=== PATIENT | female | born 1930 | race Caucasian/White ===

== ENCOUNTER → 2017-10-02 | Outpatient (CLI) | payer MEDICARE ==
[2015-05-23 19:43] VITALS: BP 127/70
[~2017-10-02] MED LIST: ALLO300T PO; APIX2.5T PO; CARV12.52 PO; CHOL10003 PO; CITA10TA8 PO; CITA20TA9 PO; FERR-36 PO; GLYB1TAB2 PO; HYDR12.58 PO; LOSA1TAB22 PO; LOSA50TA2 PO; MIRT15TA3 PO; MIRT7.5T8 PO; NYST60PO TP; OMEG-33 PO; PANT40TA3 PO; SIMV20TA PO
--- NOTE | 2017-10-02 13:04 | RAD ---
EXAM: Head CT without contrast. HISTORY: Unsteady gait. TECHNIQUE: Computed tomographic images of the head were obtained without contrast. *One or more of the following individualized dose reduction techniques were utilized for this examination: 1. Automated exposure control. 2. Adjustment of the mA and/or kV according to patient size. 3. Use of iterative reconstruction technique. COMPARISON: 05/11/2015. FINDINGS: There is no acute or subacute extra-axial or intraparenchymal hemorrhage. There is no mass effect or midline shift. There is no hydrocephalus. There are areas of decreased attenuation within the cerebral white matter, nonspecific and likely related to chronic small vessel disease. There is mild cerebral volume loss. There is orbital band keratopathy. The paranasal sinuses and mastoid air cells are unremarkable. There is slight hyperostosis frontalis interna, an incidental finding. IMPRESSION: 1. No acute intracranial finding. 2. Scattered areas of hypodensity within the cerebral white matter, a nonspecific finding likely due to chronic small vessel disease. 3. Note is made that MRI is more sensitive for acute infarction. Electronically signed by: Marcella Wong MD (10/02/2017 1:00 PM) [facility]
== END | disposition home or self-care (01) ==
LOC: CT 12:38
PROVIDERS: ATTEND Specialist
DX: G45.9 Transient cerebral ischemic attack, unspecified (principal); M85.2 Hyperostosis of skull; H18.429 Band keratopathy, unspecified eye
CPT/HCPCS: 70450

== ENCOUNTER → 2017-10-05 | Outpatient (CLI) | payer MEDICARE ==
[2015-05-23 19:43] VITALS: BP 127/70
--- NOTE | 2017-10-05 16:12 | RAD ---
EXAM: Carotid Doppler sonogram. HISTORY: Transient ischemic attack. TECHNIQUE: Regalado scale and color Doppler sonographic evaluation of the neck with spectral waveform analysis was performed and static images are submitted for review. FINDINGS: There is intimal thickening involving the common carotid arteries and mild atherosclerotic plaque within the carotid bulbs and origins of the internal and external carotid arteries. The peak systolic velocity within the right common carotid artery is 62 cm/sec. The peak systolic velocity within the right internal carotid artery is 65 cm/sec and the end diastolic velocity within the right internal carotid artery is 16 cm/sec. The right ICA/CCA ratio is 0.9. The peak systolic velocity within the left common carotid artery is 86 cm/sec. The peak systolic velocity within the left internal carotid artery is 142 cm/sec and the end diastolic velocity within the left internal carotid artery is 21 cm/sec. The left ICA/CCA ratio is 1.7. There is normal antegrade flow within both vertebral arteries. IMPRESSION: 1. Mildly elevated peak systolic velocity within the left ICA. Despite normal ICA to CCA ratio, this suggests 50-69% stenosis. 2. No Doppler evidence of hemodynamically significant stenosis within the right internal carotid artery or vertebral arteries. PQRS Compliance Statement - Stenosis calculations for CT, MR and conventional angiography are based upon measurement of the distal ICA diameter in accordance with the NASCET methodology. Stenosis calculations for carotid ultrasound studies are derived from validated velocity criteria which are known to correlate with the NASCET methodology. Electronically signed by: Marcella Wong MD (10/05/2017 4:08 PM) [facility]
== END | disposition home or self-care (01) ==
LOC: US 13:49
PROVIDERS: ATTEND Specialist
DX: G45.9 Transient cerebral ischemic attack, unspecified (principal)
CPT/HCPCS: 93880

== ENCOUNTER 2017-10-21 14:03 | Inpatient (IN) | payer MEDICARE ==
[~2017-10-21] VITALS: Ht 157.5 cm; Wt 75.0 kg
--- NOTE | 2017-10-21 14:38 | PHYS DOC ---
Past History Past Medical History: Hypertension, Other Past Surgical History: Other Alcohol Use: None Adult General Chief Complaint Chief Complaint: WEAKNESS/GENERALIZED HPI HPI 87-year-old female patient brought in by EMS because of altered level of consciousness. Patient's daughter states she was sitting on her chair in October alliance party and was not able to hold her plate and then her head fell on her chest and she became unresponsive and did not respond to question. Patient had mild cyanosis at that time and after about 15 minutes at arrival of EMS had O2 sat of 85% and her condition improved with his starting oxygen and patient became gradually rate and oriented and was able to move all of her extremities and denies any pain. She is alert and oriented at arrival to ER and does not remember any event. Patient daughter states she is able to walk without or sometimes with collections assistant and had mild episodes of dementia recently. Review of Systems Review of Systems Constitutional: Denies fever or chills [] Eyes: Denies change in visual acuity, redness, or eye pain [] HENT: Denies nasal congestion or sore throat [] Respiratory: Denies cough or shortness of breath [] Cardiovascular: No additional information not addressed in HPI [] GI: Denies abdominal pain, nausea, vomiting, bloody stools or diarrhea [] : Denies dysuria or hematuria [] Musculoskeletal: Denies back pain or joint pain [] Integument: Denies rash or skin lesions [] Neurologic: Denies headache, focal weakness or sensory changes [] Endocrine: Denies polyuria or polydipsia [] All other systems were reviewed and found to be within normal limits, except as documented in this note. Allergies Allergies Allergies Coded Allergies Type Severity Reaction Last Updated Verified No Known Drug Allergies 05/11/15 No Physical Exam Physical Exam Constitutional: Well nourished, mild distress, non-toxic appearance, slow to answering the question. [] HENT: Normocephalic, atraumatic, bilateral external ears normal, oropharynx moist, no oral exudates, nose normal. [] Eyes: PERRLA, EOMI, conjunctiva normal, no discharge. [] Neck: Normal range of motion, no tenderness, supple, no stridor. [] Cardiovascular: Irregularly irregular, no murmur [] Lungs & Thorax: Bilateral breath sounds clear to auscultation [] Abdomen: Bowel sounds normal, soft, no tenderness, no masses, no pulsatile masses. [] Skin: Warm, dry, no erythema, no rash. [] Back: No tenderness, no CVA tenderness. [] Extremities: No tenderness, no cyanosis, no clubbing, ROM intact, no edema. [] Neurologic: Alert and oriented X 2, normal motor function, normal sensory function, no focal deficits noted. [] Psychologic: Affect normal, mood normal. [] EKG EKG EKG interpreted by me. EKG at 1409 showed atrial fibrillation at rate of 76, prolonged WV interval at 224 nonspecific intraventricular block, poor R-wave progress and anteroseptal leads, no acute ST and T-wave abnormalities.[] Radiology/Procedures Radiology/Procedures [][address] [address] IMAGING REPORT Signed PATIENT: JEFFREY PARIS ACCOUNT: [id number] : 1930 LOCATION: ER AGE: 87 SEX: F EXAM STATUS: REG ER ORD. PHYSICIAN: CALVIN MILLER MD REASON: altered level of consciousness PROCEDURE: PORTABLE CHEST 1V EXAM: Chest, single view. HISTORY: Weakness. COMPARISON: 05/12/2015 FINDINGS: A frontal view of the chest is obtained. There is no infiltrate, pleural effusion or pneumothorax. There is lingular and bilateral infrahilar atelectasis or scarring. The heart is normal in size. IMPRESSION: Suspected lingular and bilateral lower lobe atelectasis or scarring. Electronically signed by: Marcella Calderon MD (10/21/2017 3:06 PM) [facility] DICTATED AND SIGNED BY: MARCELLA CALDERON MD DATE: 10/21/17 1506 CC: CALVIN MILLER MD; BENNIE WETZEL MD ~ [address] [address] IMAGING REPORT Signed PATIENT: JEFFREY PARIS ACCOUNT: [id number] : 1930 LOCATION: ER AGE: 87 SEX: F EXAM STATUS: REG ER ORD. PHYSICIAN: CALVIN MILLER MD REASON: altered level of consciousness PROCEDURE: CT HEAD WO CONTRAST EXAM: Head CT without contrast. HISTORY: Weakness. Mental status changes. TECHNIQUE: Computed tomographic images of the head were obtained without contrast. *One or more of the following individualized dose reduction techniques were utilized for this examination: 1. Automated exposure control. 2. Adjustment of the mA and/or kV according to patient size. 3. Use of iterative reconstruction technique. COMPARISON: 10/02/2017. FINDINGS: There is no acute or subacute extra-axial or intraparenchymal hemorrhage. There is no mass effect or midline shift. There is no hydrocephalus. There are areas of decreased attenuation within the cerebral white matter, nonspecific and likely related to chronic small vessel disease. There is cerebral volume loss. There is a suspected tiny chronic lacunar infarct within the left basal ganglia. There is evidence of prior lens surgery. There is uncovertebral band keratopathy. The mastoid air cells and paranasal sinuses are unremarkable. No suspicious calvarial lesion is seen. There is incidental hyperostosis frontalis interna. IMPRESSION: 1. No acute intracranial finding. Note is made that MRI is more sensitive for acute infarction. 2. Decreased attenuation scattered throughout the cerebral white matter, a nonspecific finding likely due to chronic small vessel disease. 2. Cerebral volume loss. 4. Suspected tiny chronic acute infarct within the left basal ganglia. Electronically signed by: Marcella aClderon MD (10/21/2017 3:06 PM) [facility] DICTATED AND SIGNED BY: MARCELLA CALDERON MD DATE: 10/21/17 1504 CC: CALVIN MILLER MD; BNENIE WETZEL MD ~ Course & Med Decision Making Course & Med Decision Making Pertinent Labs and Imaging studies reviewed. (See chart for details) Evaluation of patient in ER showed 87-year-old female patient brought in by EMS because of altered level of consciousness that improved after starting oxygen by EMS. Patient was as low in ER. EMS reported that she had blood sugar of stools to but her blood sugar reported 48 by labs and patient treated with a 12.5 g of glucose with increase of blood sugar to 67 and another 12.5 g of glucose was given. Patient condition improved. Patient had UTI with elevation of lactic acid to 2.4 and treated with IV fluid and Rocephin and admitted to Dr. Spencer at 1511 after informing him about the test results. Dragon Disclaimer Dragon Disclaimer This electronic medical record was generated, in whole or in part, using a voice recognition dictation system. Departure Departure: Impression: Primary Impression: Hypoglycemia Additional Impressions: UTI (urinary tract infection) Weakness Sepsis Disposition: ADMITTED INPATIENT (At 1511) Admitting Physician: Adnoay Spencer Condition: IMPROVED Referrals: BENNIE WETZEL MD (PCP) Critical Care Time Critical care time was [70] minutes exclusive of procedures. Problem Qualifiers CALVIN MILLER MD Oct 21, 2017 14:38
[2017-10-21 14:42] LABS: BASO % 0 % (0-3); EOS # 0.2 x10^3/uL (0.0-0.7); EOS % 2 % (0-3); HEMATOCRIT 42.1 % (36.0-47.0); HEMOGLOBIN 13.9 g/dL (12.0-15.5); LYMPH # 1.7 x10^3/uL (1.0-4.8); LYMPH % 18 % (24-48); MEAN CORPUSCULAR HEMOGLOBIN 31 pg (25-35); MEAN CORPUSCULAR HGB CONC 33 g/dL (31-37); MEAN CORPUSCULAR VOLUME 94 fL (79-100); MONO # 0.6 x10^3/uL (0.0-1.1); MONO % 6 % (0-9); NEUT # 7.1 x10^3uL (1.8-7.7); NEUT % 74 % (31-73); PLATELET COUNT 200 x10^3/uL (140-400); RED BLOOD COUNT 4.49 x10^6/uL (3.50-5.40); RED CELL DISTRIBUTION WIDTH 16.3 % (11.5-14.5); WHITE BLOOD COUNT 9.6 x10^3/uL (4.0-11.0)
[2017-10-21 14:56] LABS: BACTERIA,URINE MANY /HPF (0-FEW); BILIRUBIN,URINE NEG (NEG); CLARITY,URINE HAZY; COLOR,URINE YELLOW; GLUCOSE,URINE NEG (NEG); NITRITE,URINE NEG (NEG); RBC,URINE OCC /HPF (0-2); SQUAMOUS EPITHELIAL CELL,UR MOD /LPF; UROBILINOGEN,URINE 0.2 mg/dL (0.2 mg/dL)
[2017-10-21 14:59] LABS: ALBUMIN 3.5 g/dL (3.4-5.0); CALCIUM 9.4 mg/dL (8.5-10.1); CREATININE 1.2 mg/dL (0.6-1.0); GFR 42.4; MAGNESIUM 1.7 mg/dL (1.8-2.4); POTASSIUM 3.4 mmol/L (3.5-5.1); TOTAL BILIRUBIN 0.3 mg/dL (0.2-1.0); TOTAL PROTEIN 6.9 g/dL (6.4-8.2)
[2017-10-21] MEDS ORDERED: IV NORMAL SALINE 1,000ML 1,000 ML IV ONE (15:00)
--- NOTE | 2017-10-21 15:09 | RAD ---
EXAM: Head CT without contrast. HISTORY: Weakness. Mental status changes. TECHNIQUE: Computed tomographic images of the head were obtained without contrast. *One or more of the following individualized dose reduction techniques were utilized for this examination: 1. Automated exposure control. 2. Adjustment of the mA and/or kV according to patient size. 3. Use of iterative reconstruction technique. COMPARISON: 10/02/2017. FINDINGS: There is no acute or subacute extra-axial or intraparenchymal hemorrhage. There is no mass effect or midline shift. There is no hydrocephalus. There are areas of decreased attenuation within the cerebral white matter, nonspecific and likely related to chronic small vessel disease. There is cerebral volume loss. There is a suspected tiny chronic lacunar infarct within the left basal ganglia. There is evidence of prior lens surgery. There is uncovertebral band keratopathy. The mastoid air cells and paranasal sinuses are unremarkable. No suspicious calvarial lesion is seen. There is incidental hyperostosis frontalis interna. IMPRESSION: 1. No acute intracranial finding. Note is made that MRI is more sensitive for acute infarction. 2. Decreased attenuation scattered throughout the cerebral white matter, a nonspecific finding likely due to chronic small vessel disease. 2. Cerebral volume loss. 4. Suspected tiny chronic acute infarct within the left basal ganglia. Electronically signed by: Marcella Wong MD (10/21/2017 3:06 PM) [facility]
--- NOTE | 2017-10-21 15:09 | RAD ---
EXAM: Chest, single view. HISTORY: Weakness. COMPARISON: 05/12/2015 FINDINGS: A frontal view of the chest is obtained. There is no infiltrate, pleural effusion or pneumothorax. There is lingular and bilateral infrahilar atelectasis or scarring. The heart is normal in size. IMPRESSION: Suspected lingular and bilateral lower lobe atelectasis or scarring. Electronically signed by: Marcella Wong MD (10/21/2017 3:06 PM) [facility]
[2017-10-21] MEDS ORDERED: IV NORMAL SALINE 1,000ML 1,000 ML IV SCH (15:12)
[2017-10-21] MEDS ORDERED: cefTRIAXone IV Push 1 GM VIAL. IVP SCH ×2 (15:15→16:00)
[2017-10-21] MEDS ORDERED: DEXTROSE 50% 25 GM / 50ML DISP.SYRIN. IV ONE ×2 (15:15→15:45)
--- NOTE | 2017-10-21 15:20 | EKG ---
[address] [address] Test Date: 2017-10-21 Test Time: 14:09:35 Pat Name: JEFFREY PARIS Department: Room: Gender: F Latex Dipper: : 1930 Requested By: CALVIN MILLER Order Number: [id number] Reading MD: Tan Chávez MD Measurements Intervals Vass Rate: 76 P: 0 MT: 224 QRS: -19 QRSD: 126 T: 148 QT: 404 QTc: 459 Interpretive Statements ATRIAL FIBRILLATION LBBB Electronically Signed On 10-22-2017 13:01:35 CDT by Tan Chávez MD
[2017-10-21] MEDS ORDERED: MAGNESIUM OXIDE 400 MG TABLET PO ONE (16:00)
[2017-10-21 16:10] VITALS: BP 182/87
[2017-10-21 16:29] VITALS: BP 178/74
[2017-10-21 16:30] VITALS: BP 173/79
[2017-10-21 16:31] VITALS: BP 159/76
[2017-10-21] MEDS ORDERED: DEXTROSE 50% 25 GM / 50ML DISP.SYRIN. IV PRN (17:00)
[2017-10-21] MEDS ORDERED: CARVEDILOL 6.25 MG TABLET PO SCH (17:00)
[2017-10-21] MEDS ORDERED: GLYB1TAB2 PO (17:23)
[2017-10-21] MEDS ORDERED: CITA10TA8 PO (17:23)
[2017-10-21] MEDS ORDERED: ASPI325T8 PO (17:25)
--- NOTE | 2017-10-21 17:40 | HP ---
ADMIT DATE: 10/21/2017 HISTORY OF PRESENT ILLNESS: The patient is an 87-year-old female patient who was brought to the Emergency Room because of altered level of consciousness. The patient's daughter stated that she was sitting in her chair at October and was not able to hold her plate then her head fell on her chest and she became unresponsive. Did not respond to questions. She did have mild cyanosis at that time and after about 15 minutes of arrival to the Emergency Room Medical Service, her oxygen saturation was only 85%. Her condition did improve after she was started on oxygen. The patient became gradually alert, oriented, and was able to move all of her extremities and denied any chest pain; however, she did not remember any of these events. Her daughter stated that she was able to walk without and sometimes with assistance. She had mild episode of dementia recently. She was also seen recently at her primary care physician because of an episode of confusion and was extensively investigated with a CT scan of the head, bilateral carotid artery Doppler ultrasound as well as an echocardiogram and was started on aspirin. PAST MEDICAL HISTORY: Significant for hypertension, atrial fibrillation, type 2 diabetes. 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 PAST SURGICAL HISTORY: Significant for bilateral total knee arthroplasty. ALLERGIES: She has no known drug allergies. MEDICATIONS: She is currently on following medications: She is currently on ferrous sulfate 325 mg once a day, apixaban 2.5 mg twice a day, simvastatin 20 mg at bedtime, omega-3 fatty acid 3 capsules daily. She is on carvedilol 6.25 mg twice a day, losartan potassium 50 mg daily, citalopram hydrobromide for Celexa 10 mg once a day, mirtazapine 7.5 mg once a day, hydrochlorothiazide 12.5 mg half a tablet daily. She is on Protonix 40 mg once a day, glyburide/metformin 2.5/500 one tablet daily, Nystatin powder applied topically twice a day, vitamin D 1000 International Units once a day, and allopurinol 300 mg once a day. FAMILY HISTORY: Unremarkable. SOCIAL HISTORY: She is . Her about 6 years ago. Her daughter lives with her. She ambulates within her house. 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 She has 7 children, 3 daughters and 4 sons. REVIEW OF SYSTEMS: The patient did complain of diplopia. She has bilateral cataract extraction with intraocular implant. She is legally blind in the left eye. Denied any earache, tinnitus, or sensorineural deafness. Denied any nosebleeds, stuffy nose, or postnasal drip. Denied any sore throat, sore tongue, toothache, hoarseness of voice, or difficulty swallowing. Denied any chest pain. Denied any dizziness, lightheadedness, or vertigo. PHYSICAL EXAMINATION: GENERAL: On arrival to the Emergency Room, she apparently was hypoglycemic with a blood sugar of 46. She was given half amp of D50 and her blood sugar has risen to 65. She was pale, but no jaundice, cyanosis, or thyromegaly. No jugular venous distention. No limb edema. VITAL SIGNS: Her heart rate was 78, blood pressure was 150/70, temperature was 98.2, respiratory rate was 16, and oxygen saturation was 99% on room air. HEAD, EYES, EARS, NOSE, AND THROAT: Showed normocephalic, atraumatic. NECK: Supple. HEART: Showed normal first and second heart sounds. No gallop, rub, or murmur. CHEST: Clear to auscultation. No crepitation or rhonchi. ABDOMEN: Distended, soft, nontender. No guarding or rigidity. No organomegaly. All hernial orifices intact. Bowel sounds normal. NEUROLOGIC: Apparently, by the time she arrived to the Emergency Room, she became more awake, alert, did not remember any of the events. All her cranial nerves are intact except her left trochlear nerve palsy with diplopia. All other cranial nerves are intact. She moves all extremities without difficulty. She has no evidence of cerebellar dysfunction. She was symptomatic when standing, although there is a significant difference in systolic pressure between lying and standing. LABORATORY DATA: Her lab work in the Emergency Room showed a white cell count of 9600, hemoglobin 13.9, hematocrit 42, MCV 94, and platelet count 200,000. Her serum sodium was 143, potassium 3.4, chloride 105, bicarbonate 27, anion gap of 11, BUN 21, creatinine 1.2, estimated GFR was 42 mL per minute. Her glucose was 48. Her calcium was 9.4, magnesium was 1.7. Total bilirubin, AST, ALT, alkaline phosphatase were normal. Her B-type natriuretic peptide was 1266. Total protein was 6.9, albumin was 3.5, first troponin to be less than 0.017. Her white cell count was 9600, hemoglobin 14, hematocrit 42, MCV 94, and platelet count of 200,000 with normal manual differential. Her prothrombin time was 10.3, INR of 1, aPTT was 27. Urinalysis showed the urine was yellow, hazy with a pH of 6.5, specific gravity 1.015. The urine was negative for protein, glucose, ketones, blood, nitrite. There was trace of leukocyte esterase, occasional rbc's, 5-10 wbc's, many bacteria. CT scan of the head showed that there is no acute intracranial finding, however, decreased attenuation scattered throughout the cerebral white matter, nonspecific finding likely due to chronic small vessel disease. She had cerebral volume loss and suspected tiny chronic acute infarct within the left basal ganglia. Her chest x-ray showed that there is no infiltrate, pleural effusion, or pneumothorax. There is lingular and bilateral infrahilar atelectasis or scarring. The heart is normal in size. ASSESSMENT AND PLAN: In summary, this is an 87-year-old female patient who came with altered mental status, likely due to hypoglycemia. She is on glyburide that could possibly cause hypoglycemia. Her blood sugar on arrival was 48 mg that has risen after half an amp of D50 to 67 making more likely real hypoglycemia, although her blood sugar at the site of 21 of October democrat was 200. She apparently recently had an episode of confusion and at that time, there was a concern about the possibility of transient ischemic attack, and at that time, she had a CT scan of the head and carotid Doppler ultrasound, which showed that she has mildly elevated peak systolic velocity within the left internal carotid artery despite normal pericardium to common carotid artery ratio suggesting 50-69% stenosis, notable evidence of hemodynamically significant stenosis within the right internal carotid artery or vertebral arteries. We did check her orthostatics and showed that there is significant about 20 mm difference between lying and standing systolic pressure, although the patient was standing without any complaint. We will consult Dr. Ballard for reevaluation. Continue with all her medication including her Eliquis and aspirin. YOLIS JACOBS MD DR: BONY/júnior JOB#: [id number] / [id number]
[2017-10-21] MEDS: POTASSIUM CL 20MEQ IN D5W 1,000 ML IV SCH (17:54)
[2017-10-21] MEDS ORDERED: CIPROFLOXACIN HCL 500 MG TABLET PO ONE (18:00)
[2017-10-21 19:15] VITALS: BP 125/66
[2017-10-21] MEDS: NYSTATIN 100,000 UNIT/GM TOPICAL OINTMENT 15GM TUBE. TP SCH (20:20)
[2017-10-21] MEDS: NYSTATIN TOPICAL POWDER 15GM BOTTLE. TP SCH (20:20)
[2017-10-21] MEDS: APIXABAN 2.5 MG TABLET PO SCH (20:21)
[2017-10-21] MEDS ORDERED: MIRTAZAPINE 7.5 MG TABLET. PO SCH (21:00)
[2017-10-21] MEDS ORDERED: CITALOPRAM 10 MG TABLET. PO SCH (21:00)
[2017-10-21] MEDS ORDERED: SIMVASTATIN 20 MG TABLET PO SCH (21:00)
[2017-10-21 22:59] VITALS: BP 123/75
[2017-10-22 05:33] VITALS: BP 126/78
[2017-10-22 06:24] LABS: HEMATOCRIT 37.8 % (36.0-47.0); HEMOGLOBIN 12.5 g/dL (12.0-15.5); RED BLOOD COUNT 4.03 x10^6/uL (3.50-5.40); WHITE BLOOD COUNT 7.6 x10^3/uL (4.0-11.0)
[2017-10-22 06:36] LABS: ALBUMIN 2.9 g/dL (3.4-5.0); ALBUMIN/GLOBULIN RATIO 0.9 (1.0-1.7); CALCIUM 8.9 mg/dL (8.5-10.1); CREATININE 1.2 mg/dL (0.6-1.0); GFR 42.4; POTASSIUM 4.2 mmol/L (3.5-5.1); TOTAL BILIRUBIN 0.2 mg/dL (0.2-1.0)
[2017-10-22] MEDS: POTASSIUM CL 20MEQ IN D5W 1,000 ML IV SCH (06:38)
[2017-10-22] MEDS ORDERED: PANTOPRAZOLE 40 MG TABLET. PO SCH (07:30)
[2017-10-22] MEDS ORDERED: metFORMIN 500 MG TABLET PO SCH (08:00)
[2017-10-22] MEDS: APIXABAN 2.5 MG TABLET PO SCH (08:36)
[2017-10-22] MEDS: NYSTATIN TOPICAL POWDER 15GM BOTTLE. TP SCH (09:00)
[2017-10-22] MEDS ORDERED: SIMVASTATIN 20 MG TABLET PO SCH (09:00)
[2017-10-22] MEDS ORDERED: LOSARTAN 50 MG TABLET. PO SCH (09:00)
[2017-10-22] MEDS: NYSTATIN 100,000 UNIT/GM TOPICAL OINTMENT 15GM TUBE. TP SCH (09:00)
[2017-10-22] MEDS ORDERED: ASPIRIN 325 MG TABLET PO SCH (09:00)
[2017-10-22] MEDS ORDERED: CITALOPRAM 10 MG TABLET. PO SCH (09:00)
[2017-10-22] MEDS ORDERED: FERROUS SULFATE 325 MG TABLET. PO SCH (09:00)
[2017-10-22] MEDS ORDERED: CHOLECALCIFEROL (VITAMIN D3) 1,000 UNIT TABLET PO SCH (09:00)
[2017-10-22] MEDS ORDERED: OMEGA-3 FATTY ACIDS/FISH OIL 1,000 MG CAPSULE. PO SCH (09:00)
[2017-10-22] MEDS ORDERED: ALLOPURINOL 300 MG TABLET. PO SCH (09:00)
[2017-10-22] MEDS ORDERED: hydroCHLOROthiazide 25 MG TABLET PO SCH (09:00)
[2017-10-22] MEDS ORDERED: LACTOBACILLUS RHAMNOSUS GG 1 CAPSULE. PO SCH (10:00)
[2017-10-22 10:40] VITALS: BP 139/68
[2017-10-22] MEDS ORDERED: METF500T9 PO (12:19)
[2017-10-22] MEDS ORDERED: GLIM1TAB PO (12:19)
--- NOTE | 2017-10-22 13:48 | DS ---
DATE OF DISCHARGE: 10/22/2017 HISTORY OF PRESENT ILLNESS: The patient is an 87-year-old female patient who was admitted yesterday with altered mental status. She was at 21 of October alliance party when she was noted by her daughter to be sitting in her chair, was not able to hold her plate and her head fell on her chest. She became unresponsive. Her oxygen saturation there was 85%. Apparently, the emergency medical services arrived and checked her blood sugar was 200. However, by the time she arrived to the Emergency Room, her blood sugar was only 46 and even after treatment, her blood sugar has barely improved to 74. She was also noted to have hypokalemia. In fact, when she arrived to the hospital, her blood sugar was only 48 and after treatment her blood sugar went only to 62 making the probably first measurement erroneous as she probably has all along hypoglycemia and she is on glyburide actually 5 mg not 2.5 as was put in the computer. In fact, she continued to have low blood sugar, although not hypoglycemic up until this morning despite the fact that she was on D5W with 20 mEq of potassium chloride. However, by the time I saw her, she lost her IV line and another one could not be established and before lunch, her blood sugar was 181 mg/dL. She has no further episode of unresponsiveness, has been up and about, walked all the way to the end of the corridor. PHYSICAL EXAMINATION: GENERAL: When I saw her, she was eating her lunch comfortably and in no apparent distress. When I examined her, she was somewhat pale, but no jaundice, cyanosis, or thyromegaly. No jugular venous distension. No limb edema. VITAL SIGNS: Her heart rate was 72, blood pressure was 139/68, temperature was 98.2, respiratory rate 20, and oxygen saturation was 98% on room air. HEAD, EYES, EARS, NOSE, AND THROAT: Normocephalic, atraumatic. NECK: Supple. HEART: Showed normal first and second heart sounds with no gallop, rub, or murmur. CHEST: Clear to auscultation. No crepitation or rhonchi. ABDOMEN: Distended, soft, nontender. No guarding or rigidity. No organomegaly. All hernial orifice intact. Bowel sounds normal. NEUROLOGIC: She does have poor vision. She is hard of hearing, has bilateral hearing aids; however, all other cranial nerves are intact. She is able to ambulate with a walker without any assistance. Her intake over the last 24 hours was 1784, output was 300. As of this morning, her serum sodium was 143, potassium 4.2, chloride 107, bicarbonate 31, anion gap of 5, BUN 19, creatinine 1.2, estimated GFR was 42 mL per minute. Her glucose was 62. Her lactic acid was only 0.9. Calcium was 8.9. Total bilirubin, AST, ALT, alkaline phosphatase were normal. Total protein 6, albumin was 2.9. Her white cell count was 7600, hemoglobin 12, hematocrit 37, MCV 94, and platelet count of 179,000. Urinalysis was unremarkable. CT scan of the head was unremarkable and showed no evidence of any intracranial finding. Her chest x-ray was also unremarkable. DISCHARGE MEDICATIONS: The patient was discharged home to continue on following medications: Amaryl or glimepiride 1 mg tablet daily, metformin extended release 500 mg tablet once a day. She is to continue allopurinol 300 mg once a day, apixaban 2.5 mg twice a day, aspirin 325 mg once a day, cholecalciferol, vitamin D3 one tablet p.o. daily, citalopram hydrobromide 10 mg once a day, ferrous sulfate 325 mg once a day, hydrochlorothiazide 12.5 mg, she takes half a tablet once a day; losartan potassium 50 mg once a day, mirtazapine 7.5 mg once a day, omega-3 fatty acid 1 capsule 3 times a day, Protonix 40 mg once a day and simvastatin 20 mg at bedtime. I discontinued her glyburide as probably that is most likely cause of her prolonged with hypoglycemia. FINAL DISCHARGE DIAGNOSES: Oral hypoglycemic agent-induced hyperglycemia, resolved. She has also hypokalemia resolved and acute kidney injury, resolved. I will discontinue her glyburide and given a prescription glimepiride for Amaryl 1 mg once a day and also was given a prescription for glucometer glucose test strips and lancets to check her sugar at least once a day and whenever needed. Other medical problems include hypertension, well controlled. 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 senile macular degeneration . YOLIS JACOBS MD DR: Va JOB#: [id number] / [id number]
[2017-10-22] MEDS ORDERED: cefTRIAXone IV Push 1 GM VIAL. IVP SCH (15:00)
[2017-10-23 03:08] LABS: HEMOGLOBIN A1C 5.9 % (4.8-5.6)
== END 2017-10-22 13:30 | disposition home or self-care (01) | DRG 871 ==
LOC: ER 14:03 → 1 SOUTH 15:15
PROVIDERS: ADMIT Internal Medicine; ATTEND Internal Medicine
DX: A41.9 Sepsis, unspecified organism (principal); G93.41 Metabolic encephalopathy; N39.0 Urinary tract infection, site not specified; N17.9 Acute kidney failure, unspecified; E87.6 Hypokalemia; F03.90 Unspecified dementia, unspecified severity, without behavioral disturbance, psychotic disturbance, mood disturbance, and anxiety; H35.30 Unspecified macular degeneration; E11.65 Type 2 diabetes mellitus with hyperglycemia; I10 Essential (primary) hypertension; T38.3X5A Adverse effect of insulin and oral hypoglycemic [antidiabetic] drugs, initial encounter; I48.91 Unspecified atrial fibrillation; Z96.653 Presence of artificial knee joint, bilateral; H53.2 Diplopia; H49.12 Fourth [trochlear] nerve palsy, left eye; Z79.84 Long term (current) use of oral hypoglycemic drugs; Z79.899 Other long term (current) drug therapy; Y92.89 Other specified places as the place of occurrence of the external cause
CPT/HCPCS: 36415; 70450; 71045; 80053; 81001; 82553; 82947; 83036; 83605; 83735; 83880; 84484; 85025; 85027; 85610; 85730; 87040; 87086; 93005; 96361; 96374; 96375; J0696; J7042; 99291-25; J7030

== ENCOUNTER 2018-10-27 11:35 | Emergency (ER) | payer MEDICARE ==
[~2018-10-27] VITALS: Ht 157.5 cm; Wt 74.8 kg
[2018-10-27 11:35] VITALS: BP 208/115
[~2018-10-27 11:35] MED LIST changes: +ASPI325T8 PO; -CARV12.52 PO; +CARV12.547 PO; +GLIM1TAB PO; -LOSA50TA2 PO; +LOSA50TA86 PO; +METF500T9 PO
[2018-10-27] MEDS ORDERED: DEXTROSE 50% 25 GM / 50ML DISP.SYRIN. IV ONE (12:15)
[2018-10-27 12:31] LABS: BASO % 0 % (0-3); EOS % 0 % (0-3); HEMATOCRIT 41.7 % (36.0-47.0); HEMOGLOBIN 13.1 g/dL (12.0-15.5); LYMPH # 0.6 x10^3/uL (1.0-4.8); LYMPH % 8 % (24-48); MEAN CORPUSCULAR HEMOGLOBIN 30 pg (25-35); MEAN CORPUSCULAR HGB CONC 31 g/dL (31-37); MEAN CORPUSCULAR VOLUME 94 fL (79-100); MONO # 0.3 x10^3/uL (0.0-1.1); MONO % 4 % (0-9); NEUT % 88 % (31-73); PLATELET COUNT 249 x10^3/uL (140-400); RED BLOOD COUNT 4.44 x10^6/uL (3.50-5.40); RED CELL DISTRIBUTION WIDTH 17.6 % (11.5-14.5)
[2018-10-27 12:43] LABS: ALBUMIN 3.5 g/dL (3.4-5.0); ALBUMIN/GLOBULIN RATIO 1.1 (1.0-1.7); CALCIUM 9.3 mg/dL (8.5-10.1); CREATININE 1.1 mg/dL (0.6-1.0); GFR 46.8; POTASSIUM 4.1 mmol/L (3.5-5.1); TOTAL BILIRUBIN 0.4 mg/dL (0.2-1.0); TOTAL PROTEIN 6.6 g/dL (6.4-8.2)
[2018-10-27 14:20] LABS: BACTERIA,URINE 0 /HPF (0-FEW); BILIRUBIN,URINE NEG (NEG); CLARITY,URINE CLEAR; COLOR,URINE YELLOW; GLUCOSE,URINE 100 mg/dL (NEG); NITRITE,URINE NEG (NEG); RBC,URINE 0 /HPF (0-2); SQUAMOUS EPITHELIAL CELL,UR FEW /LPF; UROBILINOGEN,URINE 0.2 mg/dL (0.2 mg/dL); WBC,URINE 0 /HPF (0-4)
--- NOTE | 2018-10-27 14:30 | PHYS DOC ---
Past History Past Medical History: Diabetes, Hypertension Past Surgical History: No Surgical History Alcohol Use: None Drug Use: None Adult General Chief Complaint Chief Complaint: WEAKNESS/GENERALIZED HPI HPI Patient is an 88-year-old female who presents from home with report of mental status change. Patient's blood sugar and been checked and was found to be low in the 30s. Patient was given D10 and blood sugar, to 50 and she was given additional dose of D10. Upon arrival, patient is awake and alert. She denies any specific complaints at this time. She denies chest pain or shortness breath. She also denies any nausea or vomiting. She does admit that she had been pretty out of sorts during this spell.[] Review of Systems Review of Systems Constitutional: Denies fever or chills [] Respiratory: Denies cough or shortness of breath [] Cardiovascular: No additional information not addressed in HPI [] GI: Denies abdominal pain, nausea, vomiting or diarrhea [] Neurologic: Denies headache, focal weakness or sensory changes [] All other systems were reviewed and found to be within normal limits, except as documented in this note. Current Medications Current Medications Current Medications Medications (Trade) Dose Ordered Sig/Bipin Start Time Stop Time Status Last Admin Dose Admin Dextrose (Dextrose 50%-Water Syringe) 12.5 gm 1X ONCE 10/27/18 12:15 10/27/18 12:16 DC 10/27/18 11:54 12.5 GM Allergies Allergies Allergies Coded Allergies Type Severity Reaction Last Updated Verified No Known Drug Allergies 05/11/15 No Physical Exam Physical Exam Constitutional: Well developed, well nourished, no acute distress, non-toxic appearance. [] HENT: Normocephalic, atraumatic, bilateral external ears normal, oropharynx moist, no oral exudates, nose normal. [] Eyes: PERRLA, EOMI, conjunctiva normal, no discharge. [] Neck: Normal range of motion, no tenderness, supple, no stridor. [] Cardiovascular:Heart rate regular rhythm, no murmur [] Lungs & Thorax: Bilateral breath sounds clear to auscultation [] Abdomen: Bowel sounds normal, soft, no tenderness, no masses, no pulsatile masses. [] Skin: Warm, dry, no erythema, no rash. [] Extremities: No tenderness, no cyanosis, no clubbing, ROM intact, no edema. [] Neurologic: Awake and alert, no focal deficits noted. [] Current Patient Data Vital Signs Vital Signs Date Time Temp Pulse Resp B/P (MAP) Pulse Ox O2 Delivery O2 Flow Rate FiO2 10/27/18 11:35 98.3 59 16 97 Room Air Lab Results Laboratory Tests Test 10/27/18 11:41 10/27/18 12:15 10/27/18 12:34 10/27/18 13:36 Glucose (Fingerstick) 53 mg/dL (70-99) L 170 mg/dL (70-99) H White Blood Count 8.0 x10^3/uL (4.0-11.0) Red Blood Count 4.44 x10^6/uL (3.50-5.40) Hemoglobin 13.1 g/dL (12.0-15.5) Hematocrit 41.7 % (36.0-47.0) Mean Corpuscular Volume 94 fL (79-100) Mean Corpuscular Hemoglobin 30 pg (25-35) Mean Corpuscular Hemoglobin Concent 31 g/dL (31-37) Red Cell Distribution Width 17.6 % (11.5-14.5) H Platelet Count 249 x10^3/uL (140-400) Neutrophils (%) (Auto) 88 % (31-73) H Lymphocytes (%) (Auto) 8 % (24-48) L Monocytes (%) (Auto) 4 % (0-9) Eosinophils (%) (Auto) 0 % (0-3) Basophils (%) (Auto) 0 % (0-3) Neutrophils # (Auto) 7.0 x10^3uL (1.8-7.7) Lymphocytes # (Auto) 0.6 x10^3/uL (1.0-4.8) L Monocytes # (Auto) 0.3 x10^3/uL (0.0-1.1) Eosinophils # (Auto) 0.0 x10^3/uL (0.0-0.7) Basophils # (Auto) 0.0 x10^3/uL (0.0-0.2) Sodium Level 142 mmol/L (136-145) Potassium Level 4.1 mmol/L (3.5-5.1) Chloride Level 104 mmol/L (98-107) Carbon Dioxide Level 29 mmol/L (21-32) Anion Gap 9 (6-14) Blood Urea Nitrogen 14 mg/dL (7-20) Creatinine 1.1 mg/dL (0.6-1.0) H Estimated GFR (Cockcroft-Gault) 46.8 BUN/Creatinine Ratio 13 (6-20) Glucose Level 199 mg/dL (70-99) H Calcium Level 9.3 mg/dL (8.5-10.1) Total Bilirubin 0.4 mg/dL (0.2-1.0) Aspartate Amino Transferase (AST) 31 U/L (15-37) Alanine Aminotransferase (ALT) 28 U/L (14-59) Alkaline Phosphatase 77 U/L (46-116) Total Protein 6.6 g/dL (6.4-8.2) Albumin 3.5 g/dL (3.4-5.0) Albumin/Globulin Ratio 1.1 (1.0-1.7) Urine Collection Type Void Urine Color Yellow Urine Clarity Clear Urine pH 6.5 Urine Specific [place] 1.020 Urine Protein 30 mg/dl (NEG-TRACE) Urine Glucose (UA) 100 mg/dL (NEG) Urine Ketones (Stick) Neg mg/dL (NEG) Urine Blood Neg (NEG) Urine Nitrite Neg (NEG) Urine Bilirubin Neg (NEG) Urine Urobilinogen Dipstick 0.2 mg/dL (0.2 mg/dL) Urine Leukocyte Esterase Neg (NEG) Urine RBC 0 /HPF (0-2) Urine WBC 0 /HPF (0-4) Urine Squamous Epithelial Cells Few /LPF Urine Bacteria 0 /HPF (0-FEW) EKG EKG [] Radiology/Procedures Radiology/Procedures [] Course & Med Decision Making Course & Med Decision Making Pertinent Labs and Imaging studies reviewed. (See chart for details) [] Dragon Disclaimer Dragon Disclaimer This electronic medical record was generated, in whole or in part, using a voice recognition dictation system. Departure Departure: Impression: Primary Impression: Hypoglycemia Disposition: 01 HOME, SELF-CARE Condition: STABLE Referrals: BENNIE WETZEL MD (PCP) Patient Instructions: Hypoglycemia (Low Blood Sugar) JESSICA MANCIA Jr. DO Oct 27, 2018 14:30
== END 2018-10-27 14:40 | disposition home or self-care (01) ==
LOC: ER 11:35
DX: E11.649 Type 2 diabetes mellitus with hypoglycemia without coma (principal); I10 Essential (primary) hypertension
CPT/HCPCS: 36415; 80053; 81001; 82947; 85025; 96374; 99284-25